=== PATIENT | female | born 1970 | race Caucasian/White ===

== ENCOUNTER 2016-11-14 15:42 | Emergency (ER) | payer MEDICAID ==
[2016-11-14] MEDS ORDERED: PHENERGAN PR ONE (19:30)
[2016-11-14] MEDS ORDERED: BENADRYL IM ONE (19:30)
[2016-11-14] MEDS ORDERED: DILAUDID IM ONE (19:30)
--- NOTE | 2016-11-14 20:16 | Cat Scan Report ---
FINAL REPORT EXAM: CT HEAD/BRAIN WO CON HISTORY: headache TECHNIQUE: Standard unenhanced CT of the head at 5.0 millimeter axial increments PRIORS: None. FINDINGS: The ventricular system is normal in size and configuration. There is no evidence for parenchymal volume loss. There is no evidence for mass lesion, mass effect, midline shift, acute intracranial hemorrhage, or acute ischemia/ infarction. Visualized paranasal sinuses are clear. IMPRESSION: Negative CT of the head. No acute intracranial process noted.
[2016-11-14 20:41] VITALS: BP 157/61
--- NOTE | 2016-11-14 20:51 | Emergency Department Report ---
ED Headache HPI - General Chief Complaint: Headache Stated Complaint: HEADACHE/HIGH B/P Time Seen by Provider: 11/14/16 19:07 - History of Present Illness Initial Comments: Patient comes into the ER today with complaints of headache. Patient states that she woke up today with a headache. Patient does state that she has a history of migraine headaches and used to see a neurologist but she has not seen one in a while. Patient also states that this does not feel like her typical migraine headaches. Patient states that the headache seems to be at the top of her head as well as the occipital region. Patient denies any injury , visual changes, vomiting, nosebleeds, chest pain, shortness of breath. Patient does mention that she has been taking some Zofran ODT's more recently and is wondering if that could have something to do with her headache. Allergies/Adverse Reactions: Allergies erythromycin base Allergy (Verified 11/14/16 16:27) Vomiting metoclopramide HCl [From Reglan] Allergy (Verified 11/14/16 16:27) Unknown prochlorperazine [From Compazine] Allergy (Verified 11/14/16 16:27) Unknown prochlorperazine edisylate [From Compazine] Allergy (Verified 11/14/16 16:27) Unknown prochlorperazine maleate [From Compazine] Allergy (Verified 11/14/16 16:27) Unknown sucralfate [From Carafate] Allergy (Verified 11/14/16 16:27) Vomiting Sulfa (Sulfonamide Antibiotics) Allergy (Verified 11/14/16 16:27) Hives Home Medications: Ambulatory Orders Amoxicillin 1,000 mg PO BID #40 capsule 11/14/16 Butalb/Acetamin/Caff 50-325-40 [Fioricet] 1 each PO Q6HR PRN #20 tablet Promethazine [Phenergan] 25 mg NC Q8HR PRN #12 supp.rect 11/14/16 ED Review of Systems ROS: Stated complaint: HEADACHE/HIGH B/P Other details as noted in HPI Constitutional: fever. denies: chills Eyes: denies: eye pain, eye discharge, vision change ENT: denies: ear pain, throat pain Respiratory: denies: cough, shortness of breath, wheezing Cardiovascular: denies: chest pain, palpitations Endocrine: no symptoms reported Gastrointestinal: denies: abdominal pain, nausea, diarrhea Genitourinary: denies: urgency, dysuria, discharge Musculoskeletal: denies: back pain, joint swelling, arthralgia Skin: denies: rash, lesions Neurological: headache. denies: weakness, paresthesias Psychiatric: denies: anxiety, depression Hematological/Lymphatic: denies: easy bleeding, easy bruising ED Past Medical Hx - Past Medical History Previous Medical History?: Yes Hx Headaches / Migraines: Yes Additional medical history: hypothyroidism, IBS, fibroids, - Surgical History Past Surgical History?: Yes Additional Surgical History: right side thyroidectomy, c-sec - Social History Smoking Status: Never Smoker Substance Use Type: None - Medications Home Medications: Home Medications Medication Instructions Recorded Confirmed Last Taken Type Amoxicillin 1,000 mg PO BID #40 capsule 11/14/16 Unknown Rx Butalb/Acetamin/Caff 50-325-40 1 each PO Q6HR PRN #20 tablet 11/14/16 Unknown Rx [Fioricet] Promethazine [Phenergan] 25 mg NC Q8HR PRN #12 supp.rect 11/14/16 Unknown Rx ED Physical Exam - General Limitations: No Limitations General appearance: alert, in no apparent distress - Head Head exam: Present: atraumatic, normocephalic, normal inspection - Eye Eye exam: Present: normal appearance, PERRL, EOMI. Absent: conjunctival injection, periorbital swelling, periorbital tenderness Pupils: Present: normal accommodation - ENT ENT exam: Present: normal orophraynx, mucous membranes moist, TM's normal bilaterally, normal external ear exam, other (left greater than right nasal mucosa redness and turbinate swelling) - Neck Neck exam: Present: normal inspection, full ROM, other (no JVD, carotid bruit noted). Absent: tenderness, meningismus, lymphadenopathy, thyromegaly - Respiratory Respiratory exam: Present: normal lung sounds bilaterally. Absent: respiratory distress, wheezes, rales, rhonchi, chest wall tenderness, accessory muscle use, decreased breath sounds - Cardiovascular Cardiovascular Exam: Present: regular rate, normal rhythm, normal heart sounds. Absent: systolic murmur, diastolic murmur, rubs, gallop, JVD - GI/Abdominal GI/Abdominal exam: Present: soft, normal bowel sounds. Absent: distended, tenderness - Extremities Exam Extremities exam: Present: normal inspection, normal capillary refill. Absent: pedal edema, calf tenderness - Back Exam Back exam: Present: normal inspection, full ROM. Absent: tenderness, CVA tenderness (L) - Neurological Exam Neurological exam: Present: alert, oriented X3, CN II-XII intact, normal gait, reflexes normal. Absent: motor sensory deficit - Psychiatric Psychiatric exam: Present: normal affect, normal mood - Skin Skin exam: Present: warm, dry, intact, normal color. Absent: rash ED Course Vital Signs 11/14/16 16:27 Temperature 99.2 F Pulse Rate 71 Respiratory 18 Rate Blood Pressure 168/93 O2 Sat by Pulse 100 Oximetry ED Medical Decision Making - Radiology Data Radiology results: report reviewed CT of the head interpreted as negative with no acute intracranial process noted. - Medical Decision Making Patient is nontoxic and hemodynamically stable. CT imaging obtained as patient states that this headache does not feel like her normal headaches. Reviewed CT results with the patient and family in room. Repeat checking of patient's blood pressure re-reveals improvements after being medicated towards the headache. I suspect patient's blood pressure is related to her pain. Currently patient's low-grade fevers related to a cause to her headache. Patient was given intramuscular medications here in the ER with some symptomatic relief of her headache. I will start patient on some antibiotics for her sinus infection as well as refer her to a neurologist for further evaluation and headache pills resolved worsens. Patient is in agreement with treatment plan and patient is stable for discharge. Critical care attestation.: If time is entered above; I have spent that time in minutes in the direct care of this critically ill patient, excluding procedure time. ED Disposition Clinical Impression: Headache, Sinusitis, Elevated blood pressure reading Disposition: DC-01 TO HOME OR SELFCARE Is pt being admited?: No Does the pt Need Aspirin: No Condition: Good Instructions: How to Take a Blood Pressure (ED), Sinusitis (ED), Migraine Headache (ED) Prescriptions: Amoxicillin 1,000 mg PO BID #40 capsule Butalb/Acetamin/Caff 50-325-40 [Fioricet] 1 each PO Q6HR PRN #20 tablet PRN Reason: Headache Promethazine [Phenergan] 25 mg NC Q8HR PRN #12 supp.rect PRN Reason: Nausea Referrals: PRIMARY CARE, [Primary Care Provider] - 3-5 Days THELMA DWYER MD [Staff Physician] - 3-5 Days Time of Disposition: 21:02
== END 2016-11-14 21:16 | disposition home or self-care (01) ==
LOC: ED 15:42
DX: J32.9 Chronic sinusitis, unspecified (principal); R03.0 Elevated blood-pressure reading, without diagnosis of hypertension; E89.0 Postprocedural hypothyroidism; Z88.1 Allergy status to other antibiotic agents; Z88.2 Allergy status to sulfonamides; Z88.8 Allergy status to other drugs, medicaments and biological substances
CPT/HCPCS: 70450; 96372; 99283; J1170; J1200